=== PATIENT | male | born 1970 | race Caucasian/White ===

== ENCOUNTER 2018-02-16 21:49 | Observation (INO) | payer BC ==
[2018-02-16] MEDS ORDERED: NA CHLORIDE 0.9% 1,000 ML ONE (22:44)
[2018-02-16] MEDS ORDERED: THIAMINE 200 MG/2 ML INJ ONE (22:44)
[2018-02-16] MEDS ORDERED: FAMOTIDINE 20 MG/2 ML VIAL IV ONE (22:44)
[2018-02-16] MEDS ORDERED: ASPIRIN 81 MG CHEWABLE TABLET ONE (22:44)
--- NOTE | 2018-02-16 22:50 | ER ---
Nurse's Notes [facility] Name: Yvan Walter Age: 48 yrs Sex: Male : 1970 Arrival Date: 02/16/2018 Time: 21:50 Bed 3 Private MD: Diagnosis: Chest pain, unspecified;Chronic obstructive pulmonary disease, unspecified;Alcohol abuse with intoxication;Tobacco abuse counseling;Tobacco use;Hypokalemia Presentation: 02/16 21:57 Presenting complaint: Patient states: Chest pain that started Tuesday. Transition of care: patient was not received from another setting of care. Onset of symptoms was February 14, 2018. Care prior to arrival: None. 21:57 Method Of Arrival: Ambulatory 21:57 Acuity: YESY 3 aj 23:10 Initial Sepsis Screen: Does the patient meet any 2 criteria? No. Patient's initial tl2 sepsis screen is negative. Does the patient have a suspected source of infection? No. Patient's initial sepsis screen is negative. Triage Assessment: 21:58 General: Appears in no apparent distress. uncomfortable, Behavior is calm, cooperative, aj appropriate for age, Smells of alcohol. Pain: Complains of pain in chest. Neuro: Level of Consciousness is awake, alert, obeys commands, Oriented to person, place, time, situation, Appropriate for age. Cardiovascular: Reports chest pain. Respiratory: Airway is patent Trachea midline Respiratory effort is even, unlabored, Respiratory pattern is regular, symmetrical. Derm: Skin is intact, is healthy with good turgor, Skin is pink, warm \T\ dry. normal. Historical: - Allergies: 21:58 No Known Allergies; aj - Home Meds: 21:58 None [Active]; - PMHx: 21:58 None; - PSHx: 21:58 back; - Immunization history:: Adult Immunizations up to date. - Social history:: Smoking status: Patient uses tobacco products, smokes one pack cigarettes per day. Patient uses alcohol, claims drinking about a 6 pack/day. - Family history:: not pertinent. Screenin:08 Abuse screen: Denies threats or abuse. Nutritional screening: No deficits noted. tl2 Tuberculosis screening: No symptoms or risk factors identified. Fall Risk None identified. Assessment: 22:00 General: Appears in no apparent distress. comfortable, Behavior is calm, cooperative, tl2 appropriate for age, Smells of alcohol. Pain: Complains of pain in chest Pain does not radiate. Quality of pain is described as pressure, sharp, Pain began 2-3 days ago. Is intermittent. Neuro: Level of Consciousness is awake, alert, obeys commands, Oriented to person, place, time, situation. Cardiovascular: Denies diaphoresis, nausea, vomiting, Rhythm is sinus rhythm. Respiratory: Reports cough that is Airway is patent Respiratory effort is even, unlabored, Respiratory pattern is regular, symmetrical, Breath sounds are coarse bilaterally. GI: No signs and/or symptoms were reported involving the gastrointestinal system. : No signs and/or symptoms were reported regarding the genitourinary system. 23:08 Reassessment: Patient appears in no apparent distress at this time. Patient and/or tl2 family updated on plan of care and expected duration. Pain level reassessed. Patient is alert, oriented x 3, equal unlabored respirations, skin warm/dry/pink. 02/17 00:54 Reassessment: Patient appears in no apparent distress at this time. Patient and/or tl2 family updated on plan of care and expected duration. Pain level reassessed. Patient is alert, oriented x 3, equal unlabored respirations, skin warm/dry/pink. Pt stable and ready for transport to floor. Pt did not want to take his shirt off under his gown. Vital Signs: 02/16 21:58 BP 159 / 91; Pulse 83; Resp 16; Pulse Ox 92% on R/A; Weight 68.04 kg; Height 5 ft. 9 aj in. (175.26 cm); 23:08 BP 157 / 91; Pulse 84; Resp 20; Pulse Ox 100% on Nebulizer Mask; tl2 02/17 00:42 BP 135 / 91; Pulse 75; Resp 18; Pulse Ox 100% on R/A; tl2 02/16 21:58 Body Mass Index 22.15 (68.04 kg, 175.26 cm) aj ED Course: 02/16 21:50 Patient arrived in ED. am2 21:58 Triage completed. aj 21:58 Arm band placed on left wrist. Patient placed in an exam room. EKG completed in triage. aj Results shown to MD. 22:12 Aysha Gamez, RN is Primary Nurse. tl2 22:12 EKG done, by ED staff. Inserted saline lock: 22 gauge in right antecubital area, using tl2 aseptic technique. Blood collected. Patient maintains SpO2 saturation greater than 95% on room air. 22:15 Jose Sales MD is Attending Physician. josé miguel 22:33 X-ray completed. Portable x-ray completed in exam room. Patient tolerated procedure bb2 well. 22:34 XRAY Chest (1 view) In Process Unspecified. EDMS 22:48 Jcarlos Yanez MD is Hospitalizing Provider. [facility] 22:50 Radiology exam delayed due to lab results not completed at this time. (BUN/Creatinine). vm2 23:08 Patient has correct armband on for positive identification. Placed in gown. Bed in low tl2 position. Call light in reach. Side rails up X 1. Adult w/ patient. Pulse ox on. NIBP on. 02/17 00:09 CT completed. Patient tolerated procedure well. Patient moved to CT via wheelchair. Patient moved back from CT. 00:54 No provider procedures requiring assistance completed. Patient admitted, IV remains in tl2 place. Administered Medications: 02/16 22:48 Drug: Thiamine 100 mg Route: IV; Rate: bolus; Site: right antecubital; tl2 02/17 00:56 Follow up: IV Status: Completed infusion 2 02/16 22:49 Drug: Aspirin 162 mg Route: PO; 2 02/17 00:56 Follow up: Response: No adverse reaction 2 02/16 22:49 Drug: Pepcid 20 mg Route: IVP; Site: right antecubital; tl2 02/17 00:57 Follow up: Response: No adverse reaction [facility] 02/16 23:05 Drug: Lopressor (metoprolol TARTRATE) 50 mg Route: PO; 2 02/17 00:57 Follow up: Response: No adverse reaction 2 02/16 23:05 Drug: Lovenox 1 mg/kg Route: Sub-Q; Site: right lower abdomen; 2 02/17 00:57 Follow up: Response: No adverse reaction 2 02/16 23:05 Drug: Xopenex 1.25 mg Route: Inhalation; tl2 23:05 Drug: AtroVENT Aerosol 0.5 mg Route: Inhalation; tl2 23:05 Drug: Magnesium Sulfate 1 grams Route: IVPB; Infused Over: 1 hrs; Site: right tl2 antecubital; 02/17 00:44 Follow up: IV Status: Completed infusion bp 00:35 Drug: Potassium Chloride 40 mEq Route: PO; bp 00:57 Follow up: Response: No adverse reaction tl2 Outcome: 02/16 22:50 Decision to Hospitalize by Provider. [facility] 02/17 00:54 Admitted to Tele accompanied by tech, via wheelchair, room 420, with chart, Report tl2 called to GIULIA Goodson Condition: stable Discharge instructions given to patient, family, Instructed on the need for admit. 00:58 Patient left the ED. tl2 Signatures: Dispatcher [employer] Soumya Montano, RN Jose Gayle MD MD cha Hagler, Ervin eh Knox, Taylor, RN RN tl2 Soumya Morales Victoria 2 Mo Downing RN RN Mariah Crain2
--- NOTE | 2018-02-16 22:50 | EDPHYS ---
Physician Documentation [facility] Name: Yvan Walter Age: 48 yrs Sex: Male : 1970 Arrival Date: 02/16/2018 Time: 21:50 Bed 3 Private MD: ED Physician Jose Sales HPI: 02/16 22:23 This 48 yrs old Male presents to ER via Ambulatory with complaints of Chest josé miguel Pain > 30 y/o. 22:23 The patient or guardian reports chest pain that is located primarily in the substernal josé miguel area, anterior chest wall, left. Onset: 14 day(s) ago. The pain does not radiate. Associated signs and symptoms: The patient has no apparent associated signs or symptoms. The chest pain is described as sharp. Duration: The patient or guardian reports multiple episodes, with no pattern. Modifying factors: The symptoms are alleviated by nothing. the symptoms are aggravated by nothing. Severity of pain: At its worst the pain was mild moderate in the emergency department the pain is unchanged. Historical: - Allergies: 21:58 No Known Allergies; aj - Home Meds: 21:58 None [Active]; aj - PMHx: 21:58 None; aj - PSHx: 21:58 back; aj - Immunization history:: Adult Immunizations up to date. - Social history:: Smoking status: Patient uses tobacco products, smokes one pack cigarettes per day. Patient uses alcohol, claims drinking about a 6 pack/day. - Family history:: not pertinent. ROS: 22:23 Constitutional: Negative for fever, chills, and weight loss, Eyes: Negative for injury, josé miguel pain, redness, and discharge, ENT: Negative for injury, pain, and discharge, Neck: Negative for injury, pain, and swelling, Respiratory: Negative for shortness of breath, cough, wheezing, and pleuritic chest pain, Abdomen/GI: Negative for abdominal pain, nausea, vomiting, diarrhea, and constipation, Back: Negative for injury and pain, : Negative for injury, bleeding, discharge, and swelling, MS/Extremity: Negative for injury and deformity, Skin: Negative for injury, rash, and discoloration, Neuro: Negative for headache, weakness, numbness, tingling, and seizure, Psych: Negative for depression, anxiety, suicide ideation, homicidal ideation, and hallucinations, Allergy/Immunology: Negative for hives, rash, and allergies, Endocrine: Negative for neck swelling, polydipsia, polyuria, polyphagia, and marked weight changes, Hematologic/Lymphatic: Negative for swollen nodes, abnormal bleeding, and unusual bruising. 22:23 Cardiovascular: Positive for chest pain. Exam: 22:23 Constitutional: This is a well developed, well nourished patient who is awake, alert, josé miguel and in no acute distress. Head/Face: Normocephalic, atraumatic. Eyes: Pupils equal round and reactive to light, extra-ocular motions intact. Lids and lashes normal. Conjunctiva and sclera are non-icteric and not injected. Cornea within normal limits. Periorbital areas with no swelling, redness, or edema. ENT: Nares patent. No nasal discharge, no septal abnormalities noted. Tympanic membranes are normal and external auditory canals are clear. Oropharynx with no redness, swelling, or masses, exudates, or evidence of obstruction, uvula midline. Mucous membranes moist. Neck: Trachea midline, no thyromegaly or masses palpated, and no cervical lymphadenopathy. Supple, full range of motion without nuchal rigidity, or vertebral point tenderness. No Meningismus. Chest/axilla: Normal chest wall appearance and motion. Nontender with no deformity. No lesions are appreciated. Cardiovascular: Regular rate and rhythm with a normal S1 and S2. No gallops, murmurs, or rubs. Normal PMI, no JVD. No pulse deficits. Abdomen/GI: Soft, non-tender, with normal bowel sounds. No distension or tympany. No guarding or rebound. No evidence of tenderness throughout. Back: No spinal tenderness. No costovertebral tenderness. Full range of motion. Male : Normal genitalia with no discharge or lesions. Skin: Warm, dry with normal turgor. Normal color with no rashes, no lesions, and no evidence of cellulitis. MS/ Extremity: Pulses equal, no cyanosis. Neurovascular intact. Full, normal range of motion. Neuro: Awake and alert, GCS 15, oriented to person, place, time, and situation. Cranial nerves II-XII grossly intact. Motor strength 5/5 in all extremities. Sensory grossly intact. Cerebellar exam normal. Normal gait. Psych: Awake, alert, with orientation to person, place and time. Behavior, mood, and affect are within normal limits. 22:23 Respiratory: the patient does not display signs of respiratory distress, Respirations: normal, Breath sounds: bronchial sounds, that are mild, decreased breath sounds, that are mild, rhonchi, that are mild. Vital Signs: 21:58 BP 159 / 91; Pulse 83; Resp 16; Pulse Ox 92% on R/A; Weight 68.04 kg; Height 5 ft. 9 aj in. (175.26 cm); 23:08 BP 157 / 91; Pulse 84; Resp 20; Pulse Ox 100% on Nebulizer Mask; 2 02/17 00:42 BP 135 / 91; Pulse 75; Resp 18; Pulse Ox 100% on R/A; 2 02/16 21:58 Body Mass Index 22.15 (68.04 kg, 175.26 cm) aj MDM: 02/16 22:15 Patient medically screened. [facility] 22:23 Data reviewed: vital signs, nurses notes, lab test result(s), EKG, radiologic studies, [facility] plain films. 02/16 22:07 Order name: Basic Metabolic Panel [facility] 02/16 22:07 Order name: BNP; Complete Time: 00: [facility] 02/16 22:07 Order name: CBC with Diff; Complete Time: 00: [facility] 02/16 22:07 Order name: Ckmb; Complete Time: 00: [facility] 02/16 22:07 Order name: CPK; Complete Time: 00: [facility] 02/16 22:07 Order name: LFT's; Complete Time: 00: [facility] 02/16 22:07 Order name: Magnesium; Complete Time: 00: [facility] 02/16 22:07 Order name: PT-INR; Complete Time: 00: [facility] 02/16 22:07 Order name: Ptt, Activated; Complete Time: 00:28 [facility] 02/16 22:07 Order name: Troponin (emerg Dept Use Only); Complete Time: 00:28 [facility] 02/16 22:07 Order name: Basic Metabolic Panel; Complete Time: 00:28 EDMS 02/16 22:22 Order name: Lipase; Complete Time: 00:[address] [facility] 02/16 22:22 Order name: Acetaminophen; Complete Time: 00:[address] [facility] 02/16 22:22 Order name: ETOH Level; Complete Time: 00:[address] [facility] 02/16 22:07 Order name: XRAY Chest (1 view) [facility] 02/16 22:07 Order name: EKG; Complete Time: 22:08 [facility] 02/16 22:22 Order name: Salicylate; Complete Time: 00:[address] [facility] 02/16 22:22 Order name: Urine Drug Screen; Complete Time: 00:[address] [facility] 02/16 22:46 Order name: CT Chest For PE Angio [facility] 02/16 22:52 Order name: CONS Physician Consult EDDE 02/16 23:21 Order name: Urine Dipstick--Ancillary (enter results) 02/16 22:07 Order name: Cardiac monitoring; Complete Time: 22:41 [facility] 02/16 22:07 Order name: EKG - Nurse/Tech; Complete Time: 22:41 [facility] 02/16 22:07 Order name: IV Saline Lock; Complete Time: 22:41 [facility] 02/16 22:07 Order name: Labs collected and sent; Complete Time: 22:41 [facility] 02/16 22:07 Order name: O2 Per Protocol; Complete Time: 22:41 [facility] 02/16 22:07 Order name: O2 Sat Monitoring; Complete Time: 22:41 [facility] 02/16 22:07 Order name: Urine Dipstick-Ancillary (obtain specimen); Complete Time: 23:05 [facility] Administered Medications: 22:48 Drug: Thiamine 100 mg Route: IV; Rate: bolus; Site: right antecubital; 2 02/17 00:56 Follow up: IV Status: Completed infusion [facility] 02/16 22:49 Drug: Aspirin 162 mg Route: PO; tl2 02/17 00:56 Follow up: Response: No adverse reaction [facility] 02/16 22:49 Drug: Pepcid 20 mg Route: IVP; Site: right antecubital; tl2 02/17 00:57 Follow up: Response: No adverse reaction [facility] 02/16 23:05 Drug: Lopressor (metoprolol TARTRATE) 50 mg Route: PO; 2 02/17 00:57 Follow up: Response: No adverse reaction [facility] 02/16 23:05 Drug: Lovenox 1 mg/kg Route: Sub-Q; Site: right lower abdomen; 2 02/17 00:57 Follow up: Response: No adverse reaction [facility] 02/16 23:05 Drug: Xopenex 1.25 mg Route: Inhalation; tl2 23:05 Drug: AtroVENT Aerosol 0.5 mg Route: Inhalation; tl2 23:05 Drug: Magnesium Sulfate 1 grams Route: IVPB; Infused Over: 1 hrs; Site: right tl2 antecubital; 02/17 00:44 Follow up: IV Status: Completed infusion bp 00:35 Drug: Potassium Chloride 40 mEq Route: PO; bp 00:57 Follow up: Response: No adverse reaction tl2 Disposition: 02/16/18 22:50 Hospitalization ordered by Jcarlos Yanez for Observation. Preliminary diagnosis are Chest pain, unspecified, Chronic obstructive pulmonary disease, unspecified, Alcohol abuse with intoxication, Tobacco abuse counseling, Tobacco use, Hypokalemia. - Bed requested for Telemetry/MedSurg (observation). - Status is Observation. tl2 - Condition is Fair. - Problem is new. - Symptoms have improved. UTI on Admission? No Signatures: Dispatcher [employer] EDMS Betzaida Nieto RN RN kl Myers, Amanda, RN RN aj Anderson, Corey, MD MD cha Roszak, Josh, PA PA 8 Aysha Gamez RN RN tl2 Mo Downing RN RN bp Botello, Elizabeth eb Corrections: (The following items were deleted from the chart) 02/16 22:50 22:50 Hospitalization Ordered by Jcarlos Yanez MD for Observation. Preliminary eb diagnosis is Chest pain, unspecified; Chronic obstructive pulmonary disease, unspecified; Alcohol abuse with intoxication; Tobacco abuse counseling; Tobacco use. Bed requested for Telemetry/MedSurg (observation). Status is Observation. Condition is Fair. Problem is new. Symptoms have improved. UTI on Admission? No. josé miguel 22:52 22:50 02/16/2018 22:50 Hospitalization Ordered by Jcarlos Yanez MD for Observation. eb Preliminary diagnosis is Chest pain, unspecified; Chronic obstructive pulmonary disease, unspecified; Alcohol abuse with intoxication; Tobacco abuse counseling; Tobacco use. Bed requested for Telemetry/MedSurg (observation). Status is Observation. Condition is Fair. Problem is new. Symptoms have improved. UTI on Admission? No. eb 02/17 00:08 02/16 22:52 02/16/2018 22:50 Hospitalization Ordered by Jcarlos Yanez MD for kl Observation. Preliminary diagnosis is Chest pain, unspecified; Chronic obstructive pulmonary disease, unspecified; Alcohol abuse with intoxication; Tobacco abuse counseling; Tobacco use. Bed requested for Telemetry/MedSurg (observation). Status is Observation. Condition is Fair. Problem is new. Symptoms have improved. UTI on Admission? No. eb 02/17 00:09 00:08 02/16/2018 22:50 Hospitalization Ordered by Jacrlos Yanez MD for Observation. kl Preliminary diagnosis is Chest pain, unspecified; Chronic obstructive pulmonary disease, unspecified; Alcohol abuse with intoxication; Tobacco abuse counseling; Tobacco use. Bed requested for Telemetry/MedSurg (observation). Status is Observation. Condition is Fair. Problem is new. Symptoms have improved. UTI on Admission? No. kl 00:29 00:09 02/16/2018 22:50 Hospitalization Ordered by Jcarlos Yanez MD for Observation. josé miguel Preliminary diagnosis is Chest pain, unspecified; Chronic obstructive pulmonary disease, unspecified; Alcohol abuse with intoxication; Tobacco abuse counseling; Tobacco use. Bed requested for Telemetry/MedSurg (observation). Status is Observation. Condition is Fair. Problem is new. Symptoms have improved. UTI on Admission? No. kl 00:58 00:29 02/16/2018 22:50 Hospitalization Ordered by Jcarlos Yanez MD for Observation. tl2 Preliminary diagnosis is Chest pain, unspecified; Chronic obstructive pulmonary disease, unspecified; Alcohol abuse with intoxication; Tobacco abuse counseling; Tobacco use; Hypokalemia. Bed requested for Telemetry/MedSurg (observation). Status is Observation. Condition is Fair. Problem is new. Symptoms have improved. UTI on Admission? No. josé miguel
[2018-02-16 22:53] LABS: Absolute Lymphocytes (CBC) 4.3 K/uL (0.7-4.9); Absolute Monocytes 1.1 K/uL (0.1-1.3); Absolute Neutrophil 4.8 K/uL (1.8-8.0); Basophils % 1.3 % (0-1.3); Hematocrit 50.4 % (39.6-49.0); Lymphocytes % 40.3 % (15.3-44.8); MCH 34.1 pg (27.0-35.0); MCV 97.8 fL (80-100); MPV 8.8 fL (7.6-11.3); Monocytes % 10.6 % (3.3-12.3); RBC Red Blood Cell Count 5.16 M/uL (4.33-5.43)
[2018-02-16] MEDS ORDERED: IPRATROPIUM BROM 0.5MG/2.5ML ONE (22:56)
[2018-02-16] MEDS ORDERED: ENOXAPARIN 100 MG/ML SYR SQ ONE (22:56)
[2018-02-16] MEDS ORDERED: LEVALBUTEROL 1.25 MG/3 ML NEB ONE (22:56)
[2018-02-16] MEDS ORDERED: METOPROLOL TAR 25 MG TAB ONE (22:56)
[2018-02-16] MEDS ORDERED: MAGNESIUM SULFATE 1 gm IVPB 1 GM/100 ML BAG IV ONE (22:57)
[2018-02-16] MEDS ORDERED: METOPROLOL TAR 50 MG TAB ONE (23:00)
[2018-02-16 23:14] LABS: Lipase 53 U/L (22-51)
[2018-02-16 23:21] LABS: Protime INR 0.95
--- NOTE | 2018-02-16 23:28 | P.HP ---
Certification for Inpatient Patient admitted to: Observation With expected LOS: <2 Midnights Practitioner: I am a practitioner with admitting privileges, knowledge of patient current condition, hospital course, and medical plan of care. Services: Services provided to patient in accordance with Admission requirements found in Title 42 Section 412.3 of the Code of Federal Regulations Patient History Date of Service: 02/16/18 Reason for admission: chest pain History of Present Illness: Mr Walter is a 48 years old male with history of alcohol abuse drinks 6-12 pack of beers daily, tobacco abuse, smoke 2 ppd, came to ER complaining of chest pain. He states that has had recurrent episodes of chest pain for about 2 years , but he has never seen a physician for that. Today his pain was similar than previous one, described as stubbing pain in substernal area, without radiation, 7/10 in maximum intensity. He denied nausea, diaphoresis or SOB associated with the pain. The patient is intoxicated with alcohol. He drank 12 beers today, however, he is cooperative and behaving appropriately. EKG shows no ST-T abnormalities, initial trop I is negative. Allergies No Known Allergies Allergy (Unverified 02/16/18 23:00) - Past Medical/Surgical History -: tobacco abuse -: alcohol abuse Past Surgical History: Reviewed- Non-Contributory - Family History Family History: Reviewed- Non-Contributory - Social History Smoking Status: Current every day smoker Counseled patient to stop smoking for: less than 10 minutes Smoking therapy provided: Yes Patient receptive to therapy: Yes Alcohol use: Yes CD- Drugs: No Caffeine use: Yes Place of Residence: Home Review of Systems 10-point ROS is otherwise unremarkable Physical Examination - Physical Exam General: Alert, In no apparent distress HEENT: Atraumatic, PERRLA, Mucous membr. moist/pink, EOMI, Sclerae nonicteric Neck: Supple, 2+ carotid pulse no bruit, No LAD, Without JVD or thyroid abnormality Respiratory: Clear to auscultation bilaterally, Normal air movement Cardiovascular: Regular rate/rhythm, Normal S1 S2 Gastrointestinal: Normal bowel sounds, No tenderness Musculoskeletal: No tenderness Integumentary: No rashes Neurological: Normal speech, Normal strength at 5/5 x4 extr, Normal tone, Normal affect Lymphatics: No axilla or inguinal lymphadenopathy - Studies Laboratory Data (last 24 hrs) 02/16/18 22:20: Lipase 53 H 02/16/18 22:20: WBC 10.6, Hgb 17.6, Hct 50.4 H, Plt Count 185 Assessment and Plan - Problems (Diagnosis) (1) Alcohol intoxication Current Visit: Yes Status: Acute Qualifiers: Complication of substance-induced condition: uncomplicated Qualified Code(s ): F10.920 - Alcohol use, unspecified with intoxication, uncomplicated (2) Tobacco abuse Current Visit: Yes Status: Acute (3) Chest pain Current Visit: Yes Status: Acute Qualifiers: Chest pain type: precordial pain Qualified Code(s): R07.2 - Precordial pain - Plan Mr Walter will be admitted under observation due to chest pain. So far EKG without ST-T abnormalities. Trop I is negative. There is a pending CTA chest ordered in ER. 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 Will order an ECHO, cardiology consult, start ASA, check lipid panel, order serial EKG and cardiac enzymes. - Advance Directives Does patient have a Living Will: No Does patient have a Durable POA for Healthcare: No - Code Status/Comfort Care Code Status Assessed: Yes Code Status: Full Code
[2018-02-16 23:30] LABS: Bicarbonate 27 mEq/L (21-31); CKMB Creatine Kinase MB 2.4 ng/ml (0.3-4.0); Glucose Level 87 mg/dL (65-120); Potassium 3.4 mEq/L (3.6-5.0); Sodium Level 127 mEq/L (135-145)
[2018-02-16 23:33] LABS: Alcohol Serum/Plasma 334 mg/dl; Salicylates Level < 4.0 mg/dl (<30)
[2018-02-16 23:36] LABS: Barbiturates NEGATIVE; Benzodiazepines NEGATIVE; Cocaine NEGATIVE; METHAMPHETAM NEGATIVE; Opiates NEGATIVE; Phencyclidine NEGATIVE; THC Cannibis NEGATIVE
[2018-02-16 23:50] LABS: ALT/SGPT 57 IU/L (10-60); AST/SGOT 76 IU/L (10-42); Alkaline Phosphatase 102 IU/L (42-121); BUN Blood Urea Nitrogen 5 mg/dL (6-20); Bilirubin Direct 0.2 mg/dL (0-0.2); Bilirubin Total 0.8 mg/dL (0.3-1.2); Creatine Phosphokinase 166 IU/L (22-269); Protein, Total 7.8 g/dL (6.0-8.3)
[2018-02-17] LABS: Albumin 4.5 g/dL (3.2-5.5)
[2018-02-17] MEDS ORDERED: POTASSIUM CL SA 10 MEQ TAB PO ONE (00:38)
[2018-02-17 00:44] LABS: Urine Blood NEGATIVE (NEG); Urine Glucose NEGATIVE (NEG); Urine Protein NEGATIVE (NEG); Urine Specific Gravity <1.005 (1.005-1.030); Urine pH 6.5 (5.0-7.0)
[2018-02-17] MEDS ORDERED: IPRATROPIUM BROM 0.5MG/2.5ML NEB PRN (01:08)
[2018-02-17] MEDS ORDERED: ONDANSETRON 4 MG/2 ML VIAL IV PRN (01:08)
[2018-02-17] MEDS ORDERED: ALBUTEROL 2.5 MG/3 ML NEB SOL NEB PRN (01:08)
[2018-02-17 02:25] VITALS: BMI 22.1
[2018-02-17 04:59] LABS: Absolute Lymphocytes (CBC) 3.2 K/uL (0.7-4.9); Absolute Monocytes 0.8 K/uL (0.1-1.3); Basophils % 1.2 % (0-1.3); Eosinophils % 2.1 % (0-4.4); Hematocrit 49.1 % (39.6-49.0); Lymphocytes % 38.7 % (15.3-44.8); MCV 98.5 fL (80-100); MPV 8.9 fL (7.6-11.3); Monocytes % 9.5 % (3.3-12.3); RBC Red Blood Cell Count 4.99 M/uL (4.33-5.43)
[2018-02-17 05:15] LABS: ALT/SGPT 51 IU/L (10-60); AST/SGOT 66 IU/L (10-42); Albumin 3.9 g/dL (3.2-5.5); Alkaline Phosphatase 91 IU/L (42-121); BUN Blood Urea Nitrogen 5 mg/dL (6-20); Bicarbonate 25 mEq/L (21-31); Bilirubin Total 0.7 mg/dL (0.3-1.2); Glucose Level 82 mg/dL (65-120); HDL Cholesterol 114 mg/dL (27-67); LDL Cholesterol, Calculated 75 (<130); Potassium 4.1 mEq/L (3.6-5.0); Sodium Level 135 mEq/L (135-145)
--- NOTE | 2018-02-17 06:25 | EKG ---
Test Date: 2018-02-16 Test Time: 21:57:45 Performance Improvement Manager: THIERRY MEASUREMENT RESULTS: Intervals: Rate: 90 MA: 128 QRSD: 90 QT: 378 QTc: 462 [place]: P: 73 MA: 128 QRS: 8 T: 53 INTERPRETIVE STATEMENTS: Normal sinus rhythm Possible Left atrial enlargement Borderline ECG No previous ECG available for comparison Electronically Signed On 02-17-18 06:25:32 CDT by Yvan Garcia
--- NOTE | 2018-02-17 07:47 | RAD REPORT ---
EXAM DESCRIPTION: CT - Chest For Pe Angio - 02/17/2018 6:36 am CLINICAL HISTORY: Chest pain since Tuesday COMPARISON: None. TECHNIQUE: Dynamically enhanced axial 3 mm thick images of the chest were obtained during administra tion of <100> mL Isovue 370 IV contrast. Coronal and oblique reconstruction images were generated and reviewed. Exam utilizes a protocol for optimal evaluation of pulmonary arterial tree. A preliminary report was generated by virtual radiologic and reviewed prior to dictation All CT scans are performed using dose optimization technique as appropriate and may include automated exposure control or mA/KV adjustment according to patient size. FINDINGS: A pulmonary embolus is not seen. A thoracic aortic aneurysm is not noted. A pleural effusion is not seen. A pericardial effusion is not seen. A lung consolidation is not present. Severe paraseptal emphysema is present. Bulla and blebs are pres ent within the lungs. It is most marked in the right upper lobe. One hundred eleven measures 11 centi meters. The wall of the distal esophagus is thickened IMPRESSION: Negative for a pulmonary embolism. Severe COPD Thickening of the wall of the distal esophagus may indicate an esophagitis or even neoplasm
--- NOTE | 2018-02-17 07:48 | RAD REPORT ---
EXAM DESCRIPTION: [facility] Single View02/16/2018 10:44 pm CLINICAL HISTORY: Chest pain COMPARISON: none FINDINGS: Marked COPD is present. Bulla and blebs are present in the lungs most marked right upper lobe. The heart is normal size IMPRESSION: Marked COPD
[2018-02-17] MEDS ORDERED: ASPIRIN EC 81 MG TAB PO SCH (09:00)
[2018-02-17] MEDS ORDERED: NICOTINE 21 MG/PAT TD SCH (09:00)
[2018-02-17 09:02] VITALS: O2SAT 94
--- NOTE | 2018-02-17 10:36 | ECHO ---
HEIGHT: 5 ft 9 in WEIGHT: 150 lb 0 oz DATE OF STUDY: 02/17/[address]: Jcarlos Pineda MD 2-DIMENSIONAL: YES M.MODE: YES DOPPLER: YES COLOR FLOW: YES TDS: NO PORTABLE: NO DEFINITY: NO BUBBLE STUDY: NO DIAGNOSIS: CHEST PAIN CARDIAC HISTORY: CATHERIZATION: SURGERY: PROSTHETIC VALVE: PACEMAKER: MEASUREMENTS (cm) DIASTOLIC (NORMALS) SYSTOLIC (NORMALS) IVSd 1.0 (0.6-1.2) LA Diam 3.4 (1.9-4.0) LVEF 68% LVIDd 4.1 (3.5-5.7) LVIDs 2.6 (2.0-3.5) %FS 37% LVPWd 1.0 (0.6-1.2) Ao Diam 3.3 (2.0-3.7) 2 DIMENSIONAL ASSESSMENT: RIGHT ATRIUM: NORMAL LEFT ATRIUM: NORMAL RIGHT VENTRICLE: NORMAL LEFT VENTRICLE: NORMAL TRICUSPID VALVE: NORMAL MITRAL VALVE: NORMAL PULMONIC VALVE: NORMAL AORTIC VALVE: NORMAL PERICARDIAL EFFUSION: NONE AORTIC ROOT: NORMAL LEFT VENTRICULAR WALL MOTION: NORMAL. DOPPLER/COLOR FLOW: NORMAL. COMMENTS: NORMAL 2D ECHO WITH DOPPLER. TECHNOLOGIST: LUIS REYES
--- NOTE | 2018-02-17 12:34 | CON ---
Identification: A 48-year-old man. History Of Present Illness: Mr. Walter came in with chest pain. He has actually been having his chest pain for a month. This is the first time, he sought medical attention. He came to the ER not while chest pain was happening, but he gets frequent spells of chest pain. It seems to be better when he is active, up during the day. It tends to occur more often at night when he is sitting or in the naina beti. It does not awaken him from sleep. Since he has been in the hospital, he has had normal blood tests including cardiac enzymes. Lipid panel reveals mild elevation of total cholesterol, but his H DL is 114, which is remarkable. It is a very strong negative risk factor for heart disease. He has had a lipase elevation that is minimal at 53. He has had a sodium level of 127 when he came in, it i s 135 this morning, and I have to strongly suspect that it was a lab error that had think his sodium was 127. Social History: His alcohol use is moderate. He is a regular cigarette user. Medications: Takes no medications. Allergies: REPORTS NO ALLERGIES. DOES NOT GET MEDICAL CHECKUPS. Past Medical History: No previous history of myocardial infarction, stroke, diabetes, hypertension. Family History: Unremarkable for accelerated atherosclerosis. Physical Examination: Vital Signs: 5 feet 9 inches, 150 pounds. HEENT: Normal. Lungs: Clear. Cardiac: Normal. Abdomen: Soft. Extremities: Palpable distal pulses. No cyanosis, clubbing, or edema. Diagnostic Data: Electrocardiogram shows left atrial enlargement, otherwise normal. A CT angio of t he chest is negative for pulmonary embolus. No abnormalities seen. Chest x-ray shows COPD with bull ous blebs. Impression: Mr. Walter has chest pain that is probably noncardiac. We will do a stress test and echoc ardiogram today. If that is normal, we will plan on to be discharged. Encouraged him to not use tob acco and start following up with primary care physician on a regular basis. If it is abnormal, we wi ll do a cardiac cath. MARJORIE/MARK Voice ID: [id number] Report ID: [id number]
--- NOTE | 2018-02-17 13:25 | RAD REPORT ---
EXAM DESCRIPTION: NM - Rest Stress Cardiac Imaging - 02/17/2018 1:02 pm CLINICAL HISTORY: Chest pain. COMPARISON: None. TECHNIQUE: The patient was administered approximately 10mCi of Tc 99m Sestamibi prior to resting SPE CT imaging of the heart. The patient was then administered approximately 30 mCi of Tc 99m Sestamibi f ollowing exercise or pharmacologic stress. Multiplanar SPECT images were reviewed. FINDINGS: No stress induced ischemic defect is seen to suggest stress induced ischemia. No fixed def ect is seen to suggest hibernating myocardium or scarred myocardium. The end diastolic volume is 73 ml, the end systolic volume is 25 ml, and the ejection fraction is 66 %. IMPRESSION: No stress induced ischemia.
--- NOTE | 2018-02-17 14:55 | P.SSS ---
Patient History Date of Service: 02/17/18 Reason for admission: chest pain History of Present Illness: Mr Walter is a 48 years old male with history of alcohol abuse drinks 6-12 pack of beers daily, tobacco abuse, smoke 2 ppd, came to ER complaining of chest pain. He states that has had recurrent episodes of chest pain for about 2 years , but he has never seen a physician for that. Today his pain was similar than previous one, described as stubbing pain in substernal area, without radiation, 7/10 in maximum intensity. He denied nausea, diaphoresis or SOB associated with the pain. The patient is intoxicated with alcohol. He drank 12 beers today, however, he is cooperative and behaving appropriately. EKG shows no ST-T abnormalities, initial trop I is negative. Allergies No Known Allergies Allergy (Unverified 02/16/18 23:00) Home Medications: NK [No Home Meds] 02/17/18 - Past Medical/Surgical History Has patient received pneumonia vaccine in the past: No Diabetic: No -: tobacco abuse -: alcohol abuse -: laminectomy -: tonsillectomy - Family History Family History: Reviewed- Non-Contributory - Social History Smoking Status: Current every day smoker Alcohol use: Yes CD- Drugs: No Caffeine use: Yes Place of Residence: Home Review of Systems General: As per HPI Physical Examination - Vital Signs Temperature: 98.6 F Blood Pressure: 156/83 Pulse: 83 Respirations: 16 Pulse Ox (%): 95 - Physical Exam General: Alert, In no apparent distress HEENT: Atraumatic, PERRLA, Mucous membr. moist/pink, EOMI, Sclerae nonicteric Neck: Supple, 2+ carotid pulse no bruit, No LAD, Without JVD or thyroid abnormality Respiratory: Clear to auscultation bilaterally, Normal air movement Cardiovascular: Regular rate/rhythm, Normal S1 S2 Gastrointestinal: Normal bowel sounds, No tenderness Musculoskeletal: No tenderness Integumentary: No rashes Neurological: Normal gait, Normal speech, Normal strength at 5/5 x4 extr, Normal tone, Normal affect Lymphatics: No axilla or inguinal lymphadenopathy - Studies Laboratory Data (last 24 hrs) 02/16/18 22:20: Lipase 53 H 02/16/18 22:20: PT 11.2, INR 0.95, APTT 29.4 02/16/18 22:20: WBC 10.6, Hgb 17.6, Hct 50.4 H, Plt Count 185 02/16/18 22:20: B-Natriuretic Peptide < 10 02/16/18 22:20: Sodium 127 L, Potassium 3.4 L, BUN 5 L, Creatinine 0.68, Glucose 87, Magnesium 2.0, Total Bilirubin 0.8, AST 76 H, ALT 57, Alkaline Phosphatase 102 - Diagnosis (Problem(s)) (1) Chest pain Onset Date: 02/17/18 Current Visit: Yes Status: Acute Qualifiers: Chest pain type: precordial pain Qualified Code(s): R07.2 - Precordial pain (2) Alcohol intoxication Onset Date: 02/17/18 Current Visit: Yes Status: Acute Qualifiers: Complication of substance-induced condition: uncomplicated Qualified Code(s ): F10.920 - Alcohol use, unspecified with intoxication, uncomplicated (3) Tobacco abuse Onset Date: 02/17/18 Current Visit: Yes Status: Acute Treatment Summary: Pt was admitted to the hospital for ACS ruleout due to chest pain with high risk. Pt had ECHO and stress test here in the hospital. ECHO was WNL and stress test was negative as well. Pt was then discharged home understable condition. pt was intoxicated when he presented to the ED, he was kept on IV fluids and was sober at discharge. Educated extensively on alcohol cessation. - Disposition Condition: GOOD Patient Discharge Instructions: Please f/u with Cardiology in 1 to 2 weeks post discharge. No New medication Diet: Regular Activity: Ad linnea
[2018-02-17 15:51] VITALS: BP 170/81; TEMP 98.7
--- NOTE | 2018-02-17 17:06 | TREADMILL ---
70% H.R.: 119 85% H.R.: 145 90% H.R.: 153 100% H.R.: 170 DX: CHEST PAIN Date of Study: 02/17/2018 Ht: 5 9 Wt: 150 lb 0 oz Consulting Physician: CATA MEDICATIONS: ALBUTEROL, ASPIRIN, ATROVENT, NICODERM, ZOFRAN HISTORY: 48 YEAR OLD MALE WITH COMPLAINTS OF CHEST PAIN. MEDICAL HISTORY: NONE, SMOKER, SMOKES TWO PACKS PER DAY FOR OVER THIRTY YEARS. PHYSICIAL EXAMINATION: RESTING B.P.: 180/94 RESTING H.R.: 109 RESTING EKG: NORMAL PROTOCOL: ADELE/ CARDIOLITE EXERCISE TIME: 7:04 MAXIMUM HEART RATE: 148 87 % OF PREDICTED B.P. AT PEAK STRESS: 200/84 H.R. AT 1 MINUTE POST EXERCISE: 142 IMPRESSION: ADELE STRESS STOPPED DUE TO FATIGUE AND TARGET HEART RATE REACHED PER PROTOCOL. CARDIOLITE INJECTED. SEE NUCLEAR MEDICINE REPORT. NO SUPRAVENTRICULAR TACHYCARDIA. NO VENTRICULAR TACHYCARDIA. NO PREMATURE VENTRICULAR COMPLEXES. DENIED CHEST PAIN. NO ST DEPRESSION WITH STRESS.
== END 2018-02-17 16:07 | disposition home or self-care (01) ==
LOC: ER 21:49 → ERHOLD 23:28 → 4TH 02-17 00:40
PROVIDERS: ADMIT Internal Medicine; ATTEND Internal Medicine
DX: R07.9 Chest pain, unspecified (principal); F10.129 Alcohol abuse with intoxication, unspecified; F17.210 Nicotine dependence, cigarettes, uncomplicated
CPT/HCPCS: 36415; 71045; 71275; 78452; 80048; 80053; 80061; 80076; 80307; 80320; 80329; 81003; 82550; 82553; 83690; 83735; 83880; 84484; 85025; 85610; 85730; 93005; 93017; 93306; 94760; 96365; 96368; 96372; 96375; 99285; A9500; G0378; J1650; J3411; J3475; J7030; Q9967